=== PATIENT | female | born 1980 | race Caucasian/White ===

== ENCOUNTER 2017-10-01 12:26 | Observation (INO) | payer SELFPAY ==
[2017-10-01] MEDS ORDERED: AMPICILLIN SODIUM/SULBACTAM NA 3 G in 0.9 % SODIUM CHLORIDE 100ML 100 ML IVPB ONE (12:44)
--- NOTE | 2017-10-01 12:48 | Emergency Department Record ---
History of Present Illness - General Chief Complaint: Animal Bite Stated Complaint: CAT BITE LT HAND Time Seen by Provider: 10/01/17 12:37 Source: Patient Mode of Arrival: Ambulatory Limitations: No limitations - History of Present Illness Initial Comments: The patient was bit in the L hand last night by her cat. Today the hand is much more swollen and painful and she is having pain when she moves the L 2nd finger. The patient states her Td is UTD and her cat's rabies shots are also UTD. Complaint: Animal bite Onset/Timin -: Days(s) Animal: Cat Description: Household pet Mechanism: Bite Associated Symptoms: Bleeding, Erythema Treatments Prior to Arrival: Wound dressing(s), Antibiotic ointment - Related Data Patient Tetanus UTD (within 5 yrs): Yes Home Medications Medication Instructions Recorded Confirmed Last Taken Tramadol HCl 50 mg PO ASDIR 10/01/17 10/01/17 Unknown Venlafaxine HCl [Effexor] 75 mg PO DAILY 10/01/17 10/01/17 Unknown Allergies Allergy/AdvReac Type Severity Reaction Status Date / Time No Known Drug Allergies Allergy Verified 10/01/17 12:35 Travel Screening - Travel/Exposure Within Last 30 Days Have you traveled within the last 30 days?: No Review of Systems Constitutional: Denies: Chills, Fever Past Medical History - SOCIAL HISTORY Smoking Status: Never smoker Alcohol Use: None Drug Use: None - RESPIRATORY Hx Respiratory Disorders: No - CARDIOVASCULAR Hx Cardio Disorders: No - NEURO Hx Neuro Disorders: No - GI Hx GI Disorders: No - Hx Genitourinary Disorders: Yes Comment:: endometreosis - ENDOCRINE Hx Endocrine Disorders: No - MUSCULOSKELETAL Hx Musculoskeletal Disorders: Yes Comment:: knee pain/injury - PSYCH Hx Psych Problems: Yes Hx Anxiety: Yes Hx Depression: Yes - HEMATOLOGY/ONCOLOGY Hx Hematology/Oncology Disorders: No Family Medical History Any Significant Family History?: No Physical Exam - General General Appearance: Alert, Oriented x3, Cooperative, No acute distress - Head Head exam: Atraumatic, Normal inspection - Eye Eye exam: Normal appearance, PERRL - Extremities Extremities exam: Tenderness (There is significant tenderness to the dorsal web space of the L hand where the greatest amount of swelling is.). negative: Normal inspection (There are 2 puncture wounds to the L hand. One over the distal 1st MC bone and one over the distal 2nd MC bone. There is swelling and redness between the 1st and 2nd MC bones dorsally with tenderness.), Full ROM ( There is mild to moderate pain to palpation of the L 2nd finger but presently no signs of tenosynovitis.) Image of Hand: 1 - Area of erythema and edema. 2 - Puncture wound. Course Vital Signs 10/01/17 12:31 Temperature 98.4 F Pulse Rate 84 Respiratory 18 Rate Blood Pressure 124/83 Pulse Ox 98 - Reevaluation(s) Reevaluation #1: Procedure note: The L hand PW was cleansed with betadine and prepped with alcohol. The PW was opened up but no purulence was expressed. The wound was probed and no FB was found. 10/01/17 13:54 Medical Decision Making - Data Complexity MDM Data: Labs Ordered and/or Reviewed, X-Ray Ordered and/or Reviewed - Lab Data Result diagrams: 10/01/17 12:52 10/01/17 12:52 - Radiology Data Radiology results: Report reviewed (L hand: Neg.) Disposition Disposition: Admit Clinical Impression: Cellulitis of hand Disposition: Still a Patient at [facility] Decision to Admit: Admit from ER Decision to Admit Date: 10/01/17 Decision to Admit Time: 13:55 Accepting Physician: Tsering Time Discussed w/Accepting Physician: 13:55 Condition: (2) Stable Time of Disposition: 13:55 Quality - Quality Measures Quality Measures: N/A - Blood Pressure Screening View Details: Yes Does Patient Have Any of the Following: No Blood Pressure Classification: Pre-Hypertensive BP Reading Systolic Measurement: 124 Diastolic Measurement: 83 Screening for High Blood Pressure: < Pre-Hypertensive BP, F/U Documented > [ G8950] Pre-Hypertensive Follow-up Interventions: Referral to alternative/primary care provider.
[2017-10-01 13:00] LABS: BASO % 0.3 % (0-6); EOS % 1.1 % (0-6); GRAN % 75.4 % (47-80); HEMATOCRIT 42.1 % (35.0-47.0); HEMOGLOBIN 14.5 gm/dl (11.6-16.0); LYMPH % 15.5 % (16-45); MEAN CELL VOLUME 91.9 fl (81-97); MEAN CORPUSCULAR HEMOGLOBIN 31.7 pg (27-33); MEAN CORPUSCULAR HGB CONC 34.4 g/dl (32-36); MONO % 7.7 % (0-9); PLATELET COUNT 346 K/uL (130-400); RED BLOOD COUNT 4.58 M/uL (3.80-5.40); RED CELL DISTRIBUTION WIDTH 12.8 % (11.5-14.5); WHITE BLOOD COUNT W/O DIFF 10.9 K/uL (4.2-12.2)
[2017-10-01] MEDS ORDERED: TRAMADOL HCL 50 MG TABLET PO PRN (14:27)
[2017-10-01] MEDS ORDERED: ACETAMINOPHEN 325 MG TAB PO PRN (14:44)
[2017-10-01] MEDS: HYDROCODONE/APAP 5/325MG TABLET PO PRN ×2 (16:13→21:27)
[2017-10-01] MEDS: AMPICILLIN SODIUM/SULBACTAM NA 3 G in 0.9 % SODIUM CHLORIDE 100ML 100 ML IVPB SCH (18:08)
[2017-10-01] MEDS: 0.9 % SODIUM CHLORIDE 10ML SYR IVP SCH (18:42)
[2017-10-02] MEDS: AMPICILLIN SODIUM/SULBACTAM NA 3 G in 0.9 % SODIUM CHLORIDE 100ML 100 ML IVPB SCH ×2 (00:33→06:17)
[2017-10-02] MEDS: 0.9 % SODIUM CHLORIDE 10ML SYR IVP SCH ×2 (01:13→07:00)
[2017-10-02] MEDS: HYDROCODONE/APAP 5/325MG TABLET PO PRN ×2 (03:12→07:14)
[2017-10-02 06:48] LABS: BASO % 0.2 % (0-6); EOS % 1.4 % (0-6); GRAN % 71.9 % (47-80); LYMPH % 19.1 % (16-45); MEAN CELL VOLUME 93.1 fl (81-97); MEAN CORPUSCULAR HGB CONC 33.3 g/dl (32-36); MEAN PLATELET VOLUME 10.2 fl (7.4-10.4); MONO % 7.4 % (0-9); PLATELET COUNT 349 K/uL (130-400); RED BLOOD COUNT 4.19 M/uL (3.80-5.40); RED CELL DISTRIBUTION WIDTH 12.7 % (11.5-14.5); WHITE BLOOD COUNT W/O DIFF 10.3 K/uL (4.2-12.2)
--- NOTE | 2017-10-02 07:43 | RADIOLOGY REPORT ---
EXAM: LEFT HAND HISTORY: PAIN. TECHNIQUE: Three views of the left hand were performed. FINDINGS: No evidence of fracture or dislocation. No lytic or blastic lesion. No radiopaque foreign body. IMPRESSION: NEGATIVE LEFT HAND EXAMINATION. JOB NUMBER: [id number] MTDD
--- NOTE | 2017-10-02 09:33 | History & Physical ---
History of Present Illness - Date of Service Date of Service for History & Physical: 10/02/17 - History of Present Illness Admitting Diagnosis: 1. L hand Cellulitis History of Present Illness: Ms. Lopez is a 36 y/o female here with complaint of hand wound due to cat bite 2 days ago. She says that wound bled for a short period but resolved spontaneously. She has also had some pain and increasing swelling in the area and has not had any discharge from the wound or fever. On arrival to the ED the patient had xrays which was negative for edema or evidence of soft tissue infection. There was not pus or discharge for culture and white count is normal.The patient was started on Unasyin Q8H, [place] 5mg/325mg q4H. On examination this morning the patient is doing well and the swelling has gone down significantly. She has had IV antibiotics x 5 and has not had any new concerns. Travel Screening - Travel/Exposure Within Last 30 Days Have you traveled within the last 30 days?: No - Travel/Exposure Within Last Year Have you traveled outside the [place] in the last year?: No - Additonal Travel Details Have you been exposed to anyone with a communicable illness?: No - Travel Symptoms Symptom Screening: None Review of Systems Constitutional: Denies: Chills, Fever Musculoskeletal: Reports: Joint swelling (swelling at base of 1st mcp. ) Past Medical History - SOCIAL HISTORY Smoking Status: Never smoker Alcohol Use: None Drug Use: None - RESPIRATORY Hx Respiratory Disorders: No - CARDIOVASCULAR Hx Cardio Disorders: No - NEURO Hx Neuro Disorders: No - GI Hx GI Disorders: No - Hx Genitourinary Disorders: Yes Comment:: endometreosis - ENDOCRINE Hx Endocrine Disorders: No - MUSCULOSKELETAL Hx Musculoskeletal Disorders: Yes Comment:: knee pain/injury - PSYCH Hx Psych Problems: Yes Hx Anxiety: Yes Hx Depression: Yes - HEMATOLOGY/ONCOLOGY Hx Hematology/Oncology Disorders: No Family Medical History Any Significant Family History?: No H&P Meds/Allergies - Allergies Allergies: Allergies Allergy/AdvReac Type Severity Reaction Status Date / Time No Known Drug Allergies Allergy Verified 10/01/17 12:35 - Home Medications Home Medications Medication Instructions Recorded Confirmed Last Taken Tramadol HCl 50 mg PO ASDIR 10/01/17 10/01/17 Unknown Venlafaxine HCl [Effexor] 75 mg PO DAILY 10/01/17 10/01/17 Unknown Previous Rx's Medication Instructions Recorded Amoxicillin/Potassium Clav 1 tab PO BID 3 Days #6 tab 10/02/17 [Augmentin 500Mg/125Mg] Hydrocodone/Acetaminophen [[place] 1 each PO Q6HR PRN #12 tablet 10/02/17 5-325 Tablet] - Active Medications Active Medications: Current Medications Acetaminophen (Tylenol 325mg) 650 mg PO Q6H PRN PRN Reason: PAIN/TEMP Hydrocodone Bitart/Acetaminophen ([place] 5mg/325mg) 1 each PO Q4H PRN PRN Reason: Analgesia Last Admin: 10/02/17 07:14 Dose: 1 each Ampicillin Sodium/Sulbactam (Sodium 3 g/ Sodium Chloride) 100 mls @ 200 mls/hr IVPB Q6H SUSANNE Last Infusion: 10/02/17 07:00 Dose: Infused Sodium Chloride () 10 ml IVP Q6H SUSANNE Last Admin: 10/02/17 07:00 Dose: 10 ml Tramadol HCl (Ultram) 50 mg PO Q6H PRN PRN Reason: Pain - General Last Admin: 10/02/17 06:20 Dose: 50 mg Venlafaxine HCl (Effexor Xr) 75 mg PO DAILY SUSANNE Physical Exam - Vital Signs Vital Signs: Vital Signs - Last 24 Hrs Temp Pulse Resp BP Pulse Ox 10/02/17 08:12 16 10/02/17 06:00 98.2 F 66 17 143/83 100 10/01/17 22:15 98.7 F 89 16 121/71 98 10/01/17 21:00 74 16 10/01/17 14:47 16 10/01/17 14:27 98.4 F 74 18 128/64 99 - General General Appearance: Alert, Oriented x3, Cooperative, No acute distress Limitations: No limitations - Head Head exam: Atraumatic, Normal inspection - Eye Eye exam: Normal appearance, PERRL - Cardiovascular Cardiovascular Exam: Regular rate, Normal rhythm Peripheral Pulses: 3+: Radial (R), Radial (L), Dorsalis Pedis (R), Dorsalis Pedis (L) - Extremities Extremities exam: Joint swelling (dorsal surface of the left hand at base of 1st mcp web space mild-moderate swelling. ), Tenderness (tender at base of 1st mcp), Other (restricted range of motion due to swelling/pain ). negative: Normal inspection (There are 2 puncture wounds to the L hand. One over the distal 1st MC bone and one over the distal 2nd MC bone. There is swelling and redness between the 1st and 2nd MC bones dorsally with tenderness.), Full ROM ( There is mild to moderate pain to palpation of the L 2nd finger but presently no signs of tenosynovitis.) Results - Labs Result Diagrams: 10/02/17 06:09 10/01/17 12:52 Labs Last 24 Hours: Laboratory Results - last 24 hr 10/02/17 06:09 WBC 10.3 RBC 4.19 Hgb 13.0 Hct 39.0 MCV 93.1 MCH 31.0 MCHC 33.3 RDW 12.7 Plt Count 349 MPV 10.2 Gran % 71.9 Lymphocytes % 19.1 Monocytes % 7.4 Eosinophils % 1.4 Basophils % 0.2 VTE H&P Assessment - Risk for VTE Risk for VTE: No Risk Level: Very Low Risk Assessment Date: 10/02/17 Risk Assessment Time: 11:25 VTE Orders Placed or Will Be Placed: No VTE Reason for No Prophylaxis: Not Indicated (ambulatory with minimal risk ) Plan - Detailed Diagnosis and Plan (1) Cellulitis of hand Current Visit: Yes Status: Acute Base Code: L03.119 - CELLULITIS OF UNSPECIFIED PART OF LIMB Comment: 10/02 - assessed patient's left hand t his morning and there are two puncture wounds on the dorsum near the base of the 1st MCP. Pt describes descreased swelling and pain since admission. xray negative for any soft tissue swelling. - on IV Unasyn Q6H x 5 doses thus far. Changing to PO Augmentin Q12H x 3 days and [place] 5mg/325mg Q6H PRN for pain - advised to keep hand elevated and dressed for the next few days. Return to hospital if increase in swelling or pain. - Follow up with PCP: Dr. Mariee at the end of the week for check of wound. (2) Anxiety and depression Current Visit: Yes Status: Acute Base Code: F41.8 - OTHER SPECIFIED ANXIETY DISORDERS Comment: 10/02 - On Effexor daily. (3) Full code status Current Visit: Yes Status: Acute Base Code: Z78.9 - OTHER SPECIFIED HEALTH STATUS
[2017-10-02] MEDS ORDERED: VENLAFAXINE ER 75 MG CAPSULE PO SCH (10:00)
--- NOTE | 2017-10-02 10:44 | Discharge Summary ---
Providers Discharge Summary Date: 10/02/17 Date of admission: 10/01/17 14:19 Attending physician: JOSEY VILLANUEVA Primary care physician: PARISH MARIEE D.O. Physical Exam - Vital Signs Vital Signs: Vital Signs - Last 24 Hrs Temp Pulse Resp BP Pulse Ox 10/02/17 08:12 16 10/02/17 06:00 98.2 F 66 17 143/83 100 10/01/17 22:15 98.7 F 89 16 121/71 98 10/01/17 21:00 74 16 10/01/17 14:47 16 10/01/17 14:27 98.4 F 74 18 128/64 99 - General General Appearance: Alert, Oriented x3, Cooperative, No acute distress Limitations: No limitations - Head Head exam: Atraumatic, Normal inspection - Eye Eye exam: Normal appearance, PERRL - Extremities Extremities exam: Tenderness (There is significant tenderness to the dorsal web space of the L hand where the greatest amount of swelling is.). negative: Normal inspection (There are 2 puncture wounds to the L hand. One over the distal 1st MC bone and one over the distal 2nd MC bone. There is swelling and redness between the 1st and 2nd MC bones dorsally with tenderness.), Full ROM ( There is mild to moderate pain to palpation of the L 2nd finger but presently no signs of tenosynovitis.) Hospitalization - Hospitalization Admission Diagnosis: 1. L hand Cellulitis - Problem List/Discharge Diagnosis (1) Cellulitis of hand Current Visit: Yes Status: Acute Base Code: L03.119 - CELLULITIS OF UNSPECIFIED PART OF LIMB Comment: 10/02 - assessed patient's left hand t his morning and there are two puncture wounds on the dorsum near the base of the 1st MCP. Pt describes descreased swelling and pain since admission. xray negative for any soft tissue swelling. - on IV Unasyn Q6H x 5 doses thus far. Changing to PO Augmentin Q12H x 3 days and [place] 5mg/325mg Q6H PRN for pain - advised to keep hand elevated and dressed for the next few days. Return to hospital if increase in swelling or pain. - Follow up with PCP: Dr. Mariee at the end of the week for check of wound. (2) Anxiety and depression Current Visit: Yes Status: Acute Base Code: F41.8 - OTHER SPECIFIED ANXIETY DISORDERS Comment: 10/02 - On Effexor daily. (3) Full code status Current Visit: Yes Status: Acute Base Code: Z78.9 - OTHER SPECIFIED HEALTH STATUS - Hospitalization Course Hospital Course: Ms. Lopez is a 36 y/o female here with complaint of hand wound due to cat bite 2 days ago. She says that wound bled for a short period but resolved spontaneously. She has also had some pain and increasing swelling in the area and has not had any discharge from the wound or fever. On arrival to the ED the patient had xrays which was negative for edema or evidence of soft tissue infection. There was not pus or discharge for culture and white count is normal.The patient was started on Unasyin Q8H, [place] 5mg/325mg q4H. On examination this morning the patient is doing well and the swelling has gone down significantly. She has had IV antibiotics x 5 and has not had any new concerns. Condition at Discharge: (2) Stable Discharge Medications - Discharge Medications Prescriptions: Hydrocodone/Acetaminophen [[place] 5-325 Tablet] 1 each PO Q6HR PRN #12 tablet PRN Reason: Pain - Moderate (5-7) Amoxicillin/Potassium Clav [Augmentin 500Mg/125Mg] 1 tab PO BID 3 Days #6 tab Home Medications: Ambulatory Orders Tramadol HCl 50 mg PO ASDIR 10/01/17 [Last Taken Unknown] Venlafaxine HCl [Effexor] 75 mg PO DAILY 10/01/17 [Last Taken Unknown] Amoxicillin/Potassium Clav [Augmentin 500Mg/125Mg] 1 tab PO BID 3 Days #6 tab [Last Taken Unknown] Hydrocodone/Acetaminophen [[place] 5-325 Tablet] 1 each PO Q6HR PRN #12 tablet 12/15 [Last Taken Unknown] Discharge Plan - Discharge Instructions Instructions: Animal Bite (DC), Cellulitis (DC) Additional Instructions: See Dr Mariee this week or next Monday. Keep hand elevated Take antibiotics as directed until gone Hatch as directed for pain Watch for increased swelling, redness or fever. Return to the ED if getting worse Diet and activity as tolerated Resume home meds Quality Measures - Quality Measures Quality Measures: Documentation of Current Medications in Medical Record, Screening for High Blood Pressure and F/U Documented - Current Medications Quality Measure: Measure #130: Documentation of Current Medications Documentation of Current Medications: <Current Medications Documented/Reviewed> [G8427] - Blood Pressure Screening Quality Measure: Screening for High Blood Pressure and Follow-Up Documented Does Patient Have Any of the Following: No Blood Pressure Classification: Pre-Hypertensive BP Reading Systolic Measurement: 124 Diastolic Measurement: 83 Screening for High Blood Pressure: < Pre-Hypertensive BP, F/U Documented > [ G8950] Pre-Hypertensive Follow-up Interventions: Follow-up with rescreen every year., Lifestyle modifications. Lifestyle Modification: Weight Reduction, Dietary Approaches to Stop Hypertension (DASH) Eating Plan - Elder Abuse Suspicion Index EASI Reference Information: Praveen CAROLINA, Ed C, Bell D, Sharla Hurley.Development and validation of a tool to assist physicians identification of elder abuse: The Elder Abuse Suspicion Index (EASI ). Journal of Elder Abuse and Neglect, 2008; 20 (3): 276-300.
== END 2017-10-02 11:30 | disposition home or self-care (01) ==
LOC: ER 12:26 → MEDSURG 14:19
PROVIDERS: ADMIT Internal Medicine; ATTEND Internal Medicine
DX: S61.451A Open bite of right hand, initial encounter (principal); W55.01XA Bitten by cat, initial encounter; F41.8 Other specified anxiety disorders
CPT/HCPCS: 99285 ×2; 96365; 85025 ×2; 73130; G0378 ×2; J0295 ×2; 99220